=== PATIENT | male | born 1960 | race Hispanic/Latino ===

== ENCOUNTER 2017-06-06 22:58 | Emergency (ER) | payer OTHER ==
[2017-06-06] MEDS ORDERED: Phenylephrine 0.5% Nasal Spray (15 ml) NS STA (23:07)
[2017-06-06 23:08] VITALS: BMI 28.2
--- NOTE | 2017-06-06 23:16 | ED PDOC ---
Arrival/HPI - General Chief Complaint: ENT Problem Time Seen by Provider: 06/06/17 23:03 Historian: Patient, Spouse, Family (Son) - History of Present Illness Narrative History of Present Illness (Text): 06/06/17 23:11 A 57 year old male, whose past medical history includes stents, on plavix, presents to the emergency department complaining of epistaxis. The patient notes that this is his second episode today. The patient's son notes that the patient has been having frequent episodes of episataxis within the past 2 weeks. He notes that he had a similar episode several days ago where he was seen at another institution where he had normal results of his blood work. The patient notes that he has seen an ENT physician for his symptoms for which he is being treated, but he continues to experience the bleeding. The patient denies fevers, chills, headache, dizziness, chest pain, shortness of breath, dyspnea on exertion, cough, abdominal pain, nausea, vomiting, diarrhea, back pain, neck pain, urinary/bowel changes, or any other complaint. 06/07/17 00:03 Time/Duration: Other (30 Minutes) Symptom Onset: Sudden Symptom Course: Unchanged Activities at Onset: Rest, Light Context: Home Past Medical History - Provider Review Nursing Documentation Reviewed: Yes - Infectious Disease Hx of Infectious Diseases: None - Tetanus Immunization Tetanus Immunization: Unknown - Past Medical History Past Medical History: No Previous - Psychiatric Hx Psychophysiologic Disorder: Yes Hx Anxiety: Yes Hx Substance Use: No - Surgical History Hx Musculoskeletal Surgery: Yes (right foot) - Anesthesia Hx Anesthesia: Yes Hx Anesthesia Reactions: No Hx Malignant Hyperthermia: No - Suicidal Assessment Feels Threatened In Home Enviroment: No Family/Social History - Physician Review Nursing Documentation Reviewed: Yes Family/Social History: No Known Family HX Smoking Status: Never Smoked Hx Alcohol Use: No Hx Substance Use: No Hx Substance Use Treatment: No Allergies/Home Meds Allergies/Adverse Reactions: Allergies No Known Allergies Allergy (Verified 07/30/14 09:43) Home Medications: Home Meds Medication Instructions Recorded Confirmed Venlafaxine HCl [Venlafaxine HCl] 150 mg PO DAILY 07/30/14 07/30/14 Review of Systems - Physician Review All systems were reviewed & negative as marked: Yes - Review of Systems ENT: Epistaxis Respiratory: absent: SOB, Cough Cardiovascular: absent: Chest Pain, EWING Gastrointestinal: absent: Abdominal Pain, Diarrhea, Nausea, Vomiting Genitourinary Male: absent: Urinary Output Changes Musculoskeletal: absent: Back Pain, Neck Pain Neurological: absent: Headache, Dizziness Physical Exam Vital Signs Reviewed: Yes Vital Signs Temp Pulse Resp BP Pulse Ox 06/06/17 23:40 97.5 F L 62 18 136/89 97 Temperature: Afebrile Blood Pressure: Normal Pulse: Regular Respiratory Rate: Normal Appearance: Positive for: Well-Appearing, Non-Toxic, Comfortable Pain Distress: None Mental Status: Positive for: Alert and Oriented X 3 - Systems Exam Head: Present: Atraumatic, Normocephalic Pupils: Present: PERRL Extroacular Muscles: Present: EOMI Conjunctiva: Present: Normal Mouth: Present: Moist Mucous Membranes Nose (Internal): No: No Active Bleeding (Blood in left nare. No visualized bleeding. ) Neck: Present: Normal Range of Motion Respiratory/Chest: Present: Clear to Auscultation, Good Air Exchange. No: Respiratory Distress, Accessory Muscle Use Cardiovascular: Present: Regular Rate and Rhythm, Normal S1, S2. No: Murmurs Abdomen: No: Tenderness, Distention, Peritoneal Signs Back: Present: Normal Inspection Upper Extremity: Present: Normal Inspection. No: Cyanosis, Edema Lower Extremity: Present: Normal Inspection. No: Edema Neurological: Present: GCS=15, CN II-XII Intact, Speech Normal Skin: Present: Warm, Dry, Normal Color. No: Rashes Psychiatric: Present: Alert, Oriented x 3, Normal Insight, Normal Concentration Medical Decision Making ED Course and Treatment: 06/06/17 23:17 Impression: A 57 year old male presents to the emergency department for a complaint of epistaxis. Plan: -- Bc-Synephrine -- Reassess and disposition Progress Notes: 06/07/17 00:03 epistaxis controled with afrin spray and direct pressure. small area of anterior bleed cauterized. pt observed 30 min w/o return of epistaxis. pt had recent neg blood work as reported by him. no h/chalino blodo tranfsuion. no warfarin use. pt declines further obs. asking for dc. advised outpt ent f/u. not tachy virtals stable. no palor - Medication Orders Current Medication Orders: Discontinued Medications Phenylephrine HCl (Bc-Synephrine 0.5% Nasal [place]) 1 ml NS STAT STA Stop: 06/06/17 23:08 Last Admin: 06/06/17 23:43 Dose: 1 ml Comments: administered by Dr. Carmel Root Statement The provider has reviewed the documentation as recorded by the Scribe Lilliam Scott Provider Scribe Attestation: All medical record entries made by the Scribe were at my direction and personally dictated by me. I have reviewed the chart and agree that the record accurately reflects my personal performance of the history, physical exam, medical decision making, and the department course for this patient. I have also personally directed, reviewed, and agree with the discharge instructions and disposition. Disposition/Present on Arrival - Present on Arrival Any Indicators Present on Arrival: No History of DVT/PE: No History of Uncontrolled Diabetes: No Urinary Catheter: No History of Decub. Ulcer: No History Surgical Site Infection Following: None - Disposition Have Diagnosis and Disposition been Completed?: Yes Diagnosis: Epistaxis Disposition: HOME/ ROUTINE Disposition Time: 12:00 Condition: STABLE Discharge Instructions (ExitCare): Nosebleeds Additional Instructions: please follow up with your doctor and specialist. return to er with worsening symptoms or concerns. Referrals: Cecil Cochran MD [Medical Doctor] - Follow up with primary Elías Tay DO [Doctor Osteopathy] - Follow up with primary Forms: [employer] ([place])
[2017-06-06 23:40] VITALS: BP 136/89; PULSE 62; RESP 18; TEMP 97.5; O2SAT 97
== END 2017-06-06 23:59 | disposition home or self-care (01) ==
LOC: ED 22:58
DX: R04.0 Epistaxis (principal)